=== PATIENT | male | born 1985 | race Caucasian/White ===

== ENCOUNTER 2016-10-10 20:20 | Inpatient (IN) | payer MEDICAID ==
[~2016-10-10] VITALS: Ht 172.7 cm; Wt 75.3 kg
[2016-10-10 21:03] LABS: BASOPHILS % (AUTO) 0.8 % (0.0-2.0); EOSINOPHILS % (AUTO) 1.4 % (1.0-6.0); HEMOGLOBIN 14.6 g/dL (13.5-17.5); LYMPHOCYTES # (AUTO) 2.8 K/uL (1.0-4.8); LYMPHOCYTES % (AUTO) 34.7 % (22.0-44.0); MEAN CORPUSCULAR HEMOGLOBIN 33.4 pg (26.0-34.0); MEAN CORPUSCULAR HGB CONC 33.3 G/dL (31.0-37.0); MEAN CORPUSCULAR VOLUME 100 fL (80-100); MONOCYTES # (AUTO) 0.5 K/uL (0.1-1.0); MONOCYTES % (AUTO) 6.2 % (2.0-9.0); NEUTROPHILS # (AUTO) 4.5 K/uL (1.8-7.7); NEUTROPHILS % (AUTO) 56.9 % (40.0-70.0); PLATELET COUNT (AUTO) 271 K/uL (150-450); RED BLOOD CELL COUNT(AUTO) 4.38 MIL/uL (4.50-5.90); RED CELL DISTRIBUTION WIDTH 13.7 % (11.5-14.5); WHITE BLOOD COUNT (AUTO) 7.9 K/uL (4.5-11.0)
[2016-10-10 21:04] LABS: RBC MORPHOLOGY COMMENT ABNORMAL RBC MORPH
[2016-10-10 21:27] LABS: ANION GAP 13 mmol/L (8-16); CALCIUM, TOTAL 8.2 mg/dL (8.8-10.5); CARBON DIOXIDE 24 mmol/L (22-29); CHLORIDE 108 mmol/L (98-107); CREATININE 0.73 mg/dL (0.60-1.30); GLOMERULAR FILTR. RATE CALC > 60 mL/min (>60); POTASSIUM 3.8 mmol/L (3.5-5.1); SODIUM SERUM 145 mmol/L (136-145); UREA NITROGEN, BLOOD 8 mg/dL (7-18)
[2016-10-10 21:32] LABS: ALANINE AMINOTRANSFERASE 29 U/L (12-78); ALBUMIN 3.5 g/dL (3.4-5.0); ASPARTATE AMINOTRANSFERASE 17 U/L (15-37); BILIRUBIN,TOTAL 0.2 mg/dL (0.1-1.0); TOTAL PROTEIN, SERUM 6.8 g/dL (6.4-8.2)
[2016-10-10] MEDS ORDERED: LORazepam 2 MG TABLET PO PRN ×2 (22:15)
[2016-10-10] MEDS ORDERED: ZOLPIDEM TARTRATE 10 MG TABLET PO PRN (22:15)
[2016-10-10] MEDS ORDERED: GuaiFENesin/D-METHORPHAN [SUGAR-FREE] 200-20MG/10 ML SYRUP UDCUP PO PRN (22:15)
[2016-10-10] MEDS ORDERED: HydrOXYzine PAMOATE 50 MG CAPSULE PO PRN (22:15)
[2016-10-10] MEDS ORDERED: CYANOCOBALAMIN 1,000 MCG/ML VIAL IM ONE (22:15)
[2016-10-10] MEDS ORDERED: LOPERAMIDE HCL 2 MG CAPSULE PO PRN (22:15)
[2016-10-11] VITALS (8 sets, daily range): BP systolic 111–131; BP diastolic 75–84
[2016-10-11] MEDS ORDERED: LORazepam 2 MG TABLET PO PRN (07:00)
[2016-10-11] MEDS: FOLIC ACID 1 MG TABLET PO SCH (08:05)
[2016-10-11] MEDS: THIAMINE HCL 100 MG TABLET PO SCH ×2 (08:06→16:22)
[2016-10-11] MEDS: LORazepam 2 MG TABLET PO SCH ×4 (08:06→20:34)
[2016-10-11] MEDS: MULTIVITAMINS WITH MINERALS, THERAPEUTIC TABLET PO SCH (08:06)
[2016-10-11] MEDS: HALOPERIDOL 5 MG TABLET PO PRN (16:22)
[2016-10-12 00:22] VITALS: BP 132/85
[2016-10-12 04:15] VITALS: BP 130/77
[2016-10-12 08:01] VITALS: BP 135/79
[2016-10-12] MEDS: THIAMINE HCL 100 MG TABLET PO SCH ×2 (08:55→16:08)
[2016-10-12] MEDS: LORazepam 2 MG TABLET PO SCH ×4 (08:55→20:38)
[2016-10-12] MEDS: MULTIVITAMINS WITH MINERALS, THERAPEUTIC TABLET PO SCH (08:55)
[2016-10-12] MEDS: FOLIC ACID 1 MG TABLET PO SCH (08:55)
[2016-10-12] MEDS: HALOPERIDOL 5 MG TABLET PO PRN ×2 (08:56→16:15)
[2016-10-12 16:00] VITALS: BP 135/79
[2016-10-12] MEDS ORDERED: IBUPROFEN 400 MG TABLET PO PRN (21:15)
[2016-10-12] MEDS ORDERED: ACETAMINOPHEN 325 MG TABLET PO PRN (21:15)
[2016-10-13 06:42] VITALS: BP 126/76
[2016-10-13 06:43] VITALS: BP 126/76
[2016-10-13] MEDS ORDERED: LORazepam 1 MG TABLET PO PRN (07:00)
[2016-10-13 08:00] VITALS: BP 138/79
[2016-10-13 08:01] VITALS: BP 138/79
[2016-10-13 08:18] LABS: THYROID STIMULATING HORMONE 2.84 uIU/mL (0.36-3.74)
[2016-10-13 08:33] LABS: HEMOGLOBIN A1C 5.1 % (4.5-6.2)
[2016-10-13] MEDS: FOLIC ACID 1 MG TABLET PO SCH (08:41)
[2016-10-13] MEDS: LORazepam 1 MG TABLET PO SCH ×4 (08:41→20:01)
[2016-10-13] MEDS: THIAMINE HCL 100 MG TABLET PO SCH ×2 (08:41→16:07)
[2016-10-13] MEDS: MULTIVITAMINS WITH MINERALS, THERAPEUTIC TABLET PO SCH (08:41)
[2016-10-13 11:33] LABS: CHOL/HDL RATIO 3.5 (4.2-7.3)
[2016-10-13 16:00] VITALS: BP 113/78
[2016-10-14 06:24] VITALS: BP 126/78
[2016-10-14 06:31] VITALS: BP 126/78
[2016-10-14] MEDS ORDERED: LORazepam 1 MG TABLET PO PRN (07:00)
[2016-10-14] MEDS: MULTIVITAMINS WITH MINERALS, THERAPEUTIC TABLET PO SCH (08:03)
[2016-10-14] MEDS: THIAMINE HCL 100 MG TABLET PO SCH ×2 (08:03→17:04)
[2016-10-14] MEDS: FOLIC ACID 1 MG TABLET PO SCH (08:03)
[2016-10-14 08:14] VITALS: BP 124/85
[2016-10-14 10:14] VITALS: BP 124/85
[2016-10-14 16:00] VITALS: BP 130/85
[2016-10-14 16:43] VITALS: BP 130/85
[2016-10-14] MEDS: HALOPERIDOL 5 MG TABLET PO PRN (17:04)
[2016-10-14] MEDS ORDERED: MIRTAZAPINE 15 MG TABLET PO SCH (21:00)
[2016-10-15 06:00] VITALS: BP 105/92
[2016-10-15 08:00] VITALS: BP 119/87
[2016-10-15] MEDS: THIAMINE HCL 100 MG TABLET PO SCH (09:13)
[2016-10-15] MEDS: HALOPERIDOL 5 MG TABLET PO PRN (09:13)
[2016-10-15] MEDS: FOLIC ACID 1 MG TABLET PO SCH (09:13)
[2016-10-15] MEDS: MULTIVITAMINS WITH MINERALS, THERAPEUTIC TABLET PO SCH (09:13)
[2016-10-15 10:19] VITALS: BP 119/87
[2016-10-15] MEDS ORDERED: MIRT15 PO (10:21)
== END 2016-10-15 11:15 | disposition home or self-care (01) | DRG 750 ==
LOC: EMS 20:24 → B3A 22:27
PROVIDERS: ADMIT Psychiatry & Neurology Child & Adolescent Psychiatry; ATTEND Psychiatry & Neurology Child & Adolescent Psychiatry
PROC: HZ36ZZZ Individual Counseling for Substance Abuse Treatment, Psychoeducation (ICD-10-PCS; principal; 2016-10-11)
DX: F25.1 Schizoaffective disorder, depressive type (principal); F33.2 Major depressive disorder, recurrent severe without psychotic features; R45.851 Suicidal ideations; R45.87 Impulsiveness; F10.129 Alcohol abuse with intoxication, unspecified; S10.91XA Abrasion of unspecified part of neck, initial encounter; Y90.8 Blood alcohol level of 240 mg/100 ml or more; F17.210 Nicotine dependence, cigarettes, uncomplicated; J11.1 Influenza due to unidentified influenza virus with other respiratory manifestations; Z72.89 Other problems related to lifestyle; Z71.41 Alcohol abuse counseling and surveillance of alcoholic; Z71.51 Drug abuse counseling and surveillance of drug abuser; Z79.899 Other long term (current) drug therapy; Z79.891 Long term (current) use of opiate analgesic; X83.8XXA Intentional self-harm by other specified means, initial encounter; Y93.89 Activity, other specified; Y92.89 Other specified places as the place of occurrence of the external cause; Y99.8 Other external cause status
CPT/HCPCS: 70360; 83036; 84443; 96372; 99285; G0480; J3420

== ENCOUNTER 2016-12-17 15:58 | Inpatient (IN) | payer MEDICAID, OTHER ==
[~2016-12-17] VITALS: Ht 172.7 cm; Wt 78.9 kg
[2016-12-17] MEDS: THIAMINE HCL 100 MG TABLET PO SCH ×2 (00:55→23:55)
[~2016-12-17 15:58] MED LIST: MIRT15 PO
[2016-12-17 16:43] LABS: BASOPHILS # (AUTO) 0.12 K/uL (0.00-0.20); BASOPHILS % (AUTO) 0.9 % (0.0-2.0); EOSINOPHILS # (AUTO) 0.04 K/uL (0.00-0.70); EOSINOPHILS % (AUTO) 0.25 % (1.0-6.0); HEMATOCRIT 49.6 % (41-53); HEMOGLOBIN 16.6 g/dL (13.5-17.5); LYMPHOCYTES # (AUTO) 2.7 K/uL (1.0-4.8); LYMPHOCYTES % (AUTO) 18.7 % (22.0-44.0); MEAN CORPUSCULAR HEMOGLOBIN 32.7 pg (26.0-34.0); MEAN CORPUSCULAR HGB CONC 33.5 G/dL (31.0-37.0); MEAN CORPUSCULAR VOLUME 98 fL (80-100); MONOCYTES # (AUTO) 0.6 K/uL (0.1-1.0); MONOCYTES % (AUTO) 4.3 % (2.0-9.0); NEUTROPHILS # (AUTO) 10.8 K/uL (1.8-7.7); NEUTROPHILS % (AUTO) 75.9 % (40.0-70.0); PLATELET COUNT (AUTO) 275 K/uL (150-450); RED BLOOD CELL COUNT(AUTO) 5.08 MIL/uL (4.50-5.90); RED CELL DISTRIBUTION WIDTH 13.5 % (11.5-14.5); WHITE BLOOD COUNT (AUTO) 14.2 K/uL (4.5-11.0)
[2016-12-17 16:58] LABS: ANION GAP 14 mmol/L (8-16); CALCIUM, TOTAL 8.3 mg/dL (8.8-10.5); CARBON DIOXIDE 26 mmol/L (22-29); CHLORIDE 104 mmol/L (98-107); CREATININE 0.91 mg/dL (0.60-1.30); GLOMERULAR FILTR. RATE CALC > 60 mL/min (>60); POTASSIUM 3.7 mmol/L (3.5-5.1); SODIUM SERUM 144 mmol/L (136-145); UREA NITROGEN, BLOOD 8 mg/dL (7-18)
[2016-12-17 17:04] LABS: ALANINE AMINOTRANSFERASE 39 U/L (12-78); ALBUMIN 4.4 g/dL (3.4-5.0); ASPARTATE AMINOTRANSFERASE 23 U/L (15-37); BILIRUBIN,TOTAL 0.8 mg/dL (0.1-1.0); TOTAL PROTEIN, SERUM 7.6 g/dL (6.4-8.2)
[2016-12-17] MEDS ORDERED: HydrOXYzine PAMOATE 50 MG CAPSULE PO PRN (17:45)
[2016-12-17] MEDS ORDERED: ACETAMINOPHEN 325 MG TABLET PO PRN (17:45)
[2016-12-17] MEDS ORDERED: DIAZEPAM 5 MG TABLET PO PRN (17:45)
[2016-12-17] MEDS ORDERED: GuaiFENesin/D-METHORPHAN [SUGAR-FREE] 200-20MG/10 ML SYRUP UDCUP PO PRN (17:45)
[2016-12-17] MEDS ORDERED: TUBERCULIN, PURIFIED PROTEIN DERIVATIVE 5 TU/0.1 ML SYG ID ONE (17:45)
[2016-12-17] MEDS ORDERED: CYANOCOBALAMIN 1,000 MCG/ML VIAL IM ONE (17:45)
[2016-12-17] MEDS ORDERED: QUEtiapine FUMARATE 100 MG TABLET PO PRN (17:45)
[2016-12-17] MEDS ORDERED: MAG HYDROX/AL HYDROX/SIMETH ES 30 ML SUSPENSION UDCUP PO PRN (17:45)
[2016-12-17] MEDS ORDERED: LOPERAMIDE HCL 2 MG CAPSULE PO PRN ×2 (17:45)
[2016-12-17] MEDS ORDERED: MAGNESIUM HYDROXIDE SUSPENSION 30 ML UDCUP PO PRN (17:45)
[2016-12-17] MEDS ORDERED: ZOLPIDEM TARTRATE 10 MG TABLET PO PRN (17:45)
[2016-12-17] MEDS ORDERED: LORazepam 2 MG TABLET PO ONE (18:45)
[2016-12-17] MEDS ORDERED: HYDR-4031 PO (20:57)
[2016-12-17 23:45] VITALS: BP 118/72
[2016-12-17] MEDS: MIRTAZAPINE 15 MG TABLET PO SCH (23:55)
[2016-12-18] VITALS (11 sets, daily range): BP systolic 115–146; BP diastolic 70–89
[2016-12-18] MEDS ORDERED: DIAZEPAM 10 MG TABLET PO PRN (07:00)
[2016-12-18] MEDS: FOLIC ACID 1 MG TABLET PO SCH (08:00)
[2016-12-18] MEDS: DIAZEPAM 10 MG TABLET PO SCH ×4 (08:00→20:17)
[2016-12-18] MEDS: MULTIVITAMINS WITH MINERALS, THERAPEUTIC TABLET PO SCH (08:00)
[2016-12-18] MEDS: THIAMINE HCL 100 MG TABLET PO SCH ×2 (08:00→16:16)
[2016-12-18] MEDS: NALTREXONE HCL 50 MG TABLET PO SCH (08:00)
[2016-12-18 08:14] LABS: BASOPHILS # (AUTO) 0.06 K/uL (0.00-0.20); BASOPHILS % (AUTO) 0.6 % (0.0-2.0); EOSINOPHILS # (AUTO) 0.06 K/uL (0.00-0.70); EOSINOPHILS % (AUTO) 0.57 % (1.0-6.0); HEMOGLOBIN 15.3 g/dL (13.5-17.5); LYMPHOCYTES # (AUTO) 2.6 K/uL (1.0-4.8); LYMPHOCYTES % (AUTO) 23.2 % (22.0-44.0); MEAN CORPUSCULAR HEMOGLOBIN 33.2 pg (26.0-34.0); MEAN CORPUSCULAR VOLUME 98 fL (80-100); MONOCYTES # (AUTO) 0.7 K/uL (0.1-1.0); MONOCYTES % (AUTO) 6.7 % (2.0-9.0); NEUTROPHILS # (AUTO) 7.6 K/uL (1.8-7.7); PLATELET COUNT (AUTO) 225 K/uL (150-450); RED BLOOD CELL COUNT(AUTO) 4.61 MIL/uL (4.50-5.90); RED CELL DISTRIBUTION WIDTH 13.4 % (11.5-14.5)
[2016-12-18 08:25] LABS: HEMOGLOBIN A1C 5.3 % (4.5-6.2)
[2016-12-18 08:48] LABS: ALANINE AMINOTRANSFERASE 34 U/L (12-78); ALBUMIN 4.1 g/dL (3.4-5.0); ANION GAP 16 mmol/L (8-16); ASPARTATE AMINOTRANSFERASE 21 U/L (15-37); BILIRUBIN,TOTAL 1.7 mg/dL (0.1-1.0); CALCIUM, TOTAL 8.5 mg/dL (8.8-10.5); CARBON DIOXIDE 24 mmol/L (22-29); CHLORIDE 101 mmol/L (98-107); CHOL/HDL RATIO 2.9 (4.2-7.3); CREATININE 0.77 mg/dL (0.60-1.30); GLOMERULAR FILTR. RATE CALC > 60 mL/min (>60); SODIUM SERUM 141 mmol/L (136-145); UREA NITROGEN, BLOOD 10 mg/dL (7-18)
[2016-12-18] MEDS ORDERED: POTASSIUM CHLORIDE 20 MEQ ER TABLET PO ONE (11:00)
[2016-12-18] MEDS ORDERED: MIRT15 PO (17:39)
[2016-12-18] MEDS ORDERED: NALT50 PO ×2 (17:39→19:57)
[2016-12-18] MEDS ORDERED: DISU250T6 PO (17:43)
[2016-12-18] MEDS ORDERED: IBUPROFEN 400 MG TABLET PO PRN (18:45)
[2016-12-18] MEDS ORDERED: ACETAMINOPHEN 325 MG TABLET PO PRN (18:45)
[2016-12-18] MEDS ORDERED: DISU250 PO (19:57)
[2016-12-18] MEDS: MIRTAZAPINE 15 MG TABLET PO SCH (20:17)
[2016-12-19 00:56] VITALS: BP 111/69
[2016-12-19 02:45] VITALS: BP 127/60
[2016-12-19 08:12] VITALS: BP 136/72
[2016-12-19] MEDS: MULTIVITAMINS WITH MINERALS, THERAPEUTIC TABLET PO SCH (08:25)
[2016-12-19] MEDS: THIAMINE HCL 100 MG TABLET PO SCH (08:25)
[2016-12-19] MEDS: DIAZEPAM 10 MG TABLET PO SCH (08:25)
[2016-12-19] MEDS: NALTREXONE HCL 50 MG TABLET PO SCH (08:25)
[2016-12-19] MEDS: FOLIC ACID 1 MG TABLET PO SCH (08:25)
[2016-12-19 08:37] LABS: ANION GAP 6 mmol/L (8-16); CALCIUM, TOTAL 8.9 mg/dL (8.8-10.5); CARBON DIOXIDE 30 mmol/L (22-29); CHLORIDE 103 mmol/L (98-107); CREATININE 0.83 mg/dL (0.60-1.30); GLOMERULAR FILTR. RATE CALC > 60 mL/min (>60); POTASSIUM 4.1 mmol/L (3.5-5.1); SODIUM SERUM 139 mmol/L (136-145); UREA NITROGEN, BLOOD 11 mg/dL (7-18)
[2016-12-19] MEDS ORDERED: DISULFIRAM 250 MG TABLET PO SCH (09:00)
[2016-12-20] MEDS ORDERED: DIAZEPAM 5 MG TABLET PO PRN (07:00)
[2016-12-20] MEDS ORDERED: DIAZEPAM 5 MG TABLET PO SCH (09:00)
[2016-12-21] MEDS ORDERED: DIAZEPAM 5 MG TABLET PO PRN (07:00)
== END 2016-12-19 09:01 | disposition home or self-care (01) | DRG 754 ==
LOC: EMS 16:01 → B2S 20:30
PROVIDERS: ADMIT Psychiatry & Neurology Psychiatry; ATTEND Psychiatry & Neurology Psychiatry
PROC: HZ2ZZZZ Detoxification Services for Substance Abuse Treatment (ICD-10-PCS; principal; 2016-12-17)
DX: F32.9 Major depressive disorder, single episode, unspecified (principal); R45.851 Suicidal ideations; Z91.19 Patient's noncompliance with other medical treatment and regimen; E87.6 Hypokalemia; F29 Unspecified psychosis not due to a substance or known physiological condition; F17.210 Nicotine dependence, cigarettes, uncomplicated; F19.90 Other psychoactive substance use, unspecified, uncomplicated; D72.829 Elevated white blood cell count, unspecified; F41.9 Anxiety disorder, unspecified; Z72.89 Other problems related to lifestyle; Z59.9 Problem related to housing and economic circumstances, unspecified; Z65.3 Problems related to other legal circumstances; Z71.41 Alcohol abuse counseling and surveillance of alcoholic; Z71.51 Drug abuse counseling and surveillance of drug abuser
CPT/HCPCS: 83036; 84439; 84443; 86592; 96372; 99285; G0480; J3420

== ENCOUNTER 2017-03-17 11:14 | Inpatient (IN) | payer MEDICAID, OTHER ==
[~2017-03-17] VITALS: Ht 172.7 cm; Wt 78.5 kg
[~2017-03-17 11:14] MED LIST changes: +DISU250 PO; +DISU250T6 PO; +NALT50TA6 PO
[2017-03-17 13:07] LABS: BASOPHILS # (AUTO) 0.04 K/uL (0.00-0.20); BASOPHILS % (AUTO) 0.4 % (0.0-2.0); EOSINOPHILS # (AUTO) 0.06 K/uL (0.00-0.70); EOSINOPHILS % (AUTO) 0.58 % (1.0-6.0); HEMATOCRIT 46.8 % (41-53); HEMOGLOBIN 16.4 g/dL (13.5-17.5); LYMPHOCYTES # (AUTO) 3.3 K/uL (1.0-4.8); LYMPHOCYTES % (AUTO) 33.4 % (22.0-44.0); MEAN CORPUSCULAR HEMOGLOBIN 33.4 pg (26.0-34.0); MEAN CORPUSCULAR VOLUME 96 fL (80-100); MONOCYTES # (AUTO) 0.5 K/uL (0.1-1.0); MONOCYTES % (AUTO) 5.1 % (2.0-9.0); NEUTROPHILS # (AUTO) 5.9 K/uL (1.8-7.7); NEUTROPHILS % (AUTO) 60.6 % (40.0-70.0); PLATELET COUNT (AUTO) 286 K/uL (150-450); RED CELL DISTRIBUTION WIDTH 13.4 % (11.5-14.5); WHITE BLOOD COUNT (AUTO) 9.8 K/uL (4.5-11.0)
[2017-03-17 13:43] LABS: ANION GAP 12 mmol/L (8-16); CALCIUM, TOTAL 8.5 mg/dL (8.8-10.5); CARBON DIOXIDE 26 mmol/L (22-29); CHLORIDE 105 mmol/L (98-107); GLOMERULAR FILTR. RATE CALC > 60 mL/min (>60); POTASSIUM 4.4 mmol/L (3.5-5.1); SODIUM SERUM 143 mmol/L (136-145); UREA NITROGEN, BLOOD 7 mg/dL (7-18)
[2017-03-17 13:48] LABS: ALANINE AMINOTRANSFERASE 34 U/L (12-78); ALBUMIN 4.3 g/dL (3.4-5.0); ASPARTATE AMINOTRANSFERASE 24 U/L (15-37); BILIRUBIN,TOTAL 0.6 mg/dL (0.1-1.0); TOTAL PROTEIN, SERUM 7.6 g/dL (6.4-8.2)
[2017-03-17] MEDS ORDERED: LOPERAMIDE HCL 2 MG CAPSULE PO PRN (14:45)
[2017-03-17] MEDS ORDERED: QUEtiapine FUMARATE 100 MG TABLET PO PRN (14:45)
[2017-03-17] MEDS ORDERED: CYANOCOBALAMIN 1,000 MCG/ML VIAL IM ONE (14:45)
[2017-03-17] MEDS ORDERED: MAG HYDROX/AL HYDROX/SIMETH ES 30 ML SUSPENSION UDCUP PO PRN (14:45)
[2017-03-17] MEDS ORDERED: PROMETHAZINE HCL 25 MG TABLET PO PRN (14:45)
[2017-03-17] MEDS ORDERED: HydrOXYzine PAMOATE 50 MG CAPSULE PO PRN (14:45)
[2017-03-17] MEDS ORDERED: GuaiFENesin/D-METHORPHAN [SUGAR-FREE] 200-20MG/10 ML SYRUP UDCUP PO PRN (14:45)
[2017-03-17] MEDS ORDERED: ACETAMINOPHEN 325 MG TABLET PO PRN (14:45)
[2017-03-17] MEDS ORDERED: MAGNESIUM HYDROXIDE SUSPENSION 30 ML UDCUP PO PRN (14:45)
[2017-03-17 16:00] VITALS: BP 145/96
[2017-03-17] MEDS: THIAMINE HCL 100 MG TABLET PO SCH (16:35)
[2017-03-17] MEDS: LORazepam 2 MG TABLET PO PRN ×2 (16:35→18:59)
[2017-03-17 17:00] VITALS: BP 142/97
[2017-03-17] MEDS ORDERED: CloNIDine HCL 0.1 MG TABLET PO PRN (17:15)
[2017-03-17 18:00] VITALS: BP 137/96
[2017-03-17 19:00] VITALS: BP 143/93
[2017-03-17 20:00] VITALS: BP 150/84
[2017-03-17] MEDS: MIRTAZAPINE 15 MG TABLET PO SCH (20:07)
[2017-03-17] MEDS: ZOLPIDEM TARTRATE 10 MG TABLET PO PRN (20:08)
[2017-03-17] MEDS ORDERED: INFLUENZA VIRUS VACCINE QVS 2017-18 (3YR+)/PF 60 MCG/0.5 ML SYRINGE IM ONE (20:45)
[2017-03-18] VITALS (7 sets, daily range): BP systolic 131–141; BP diastolic 74–85
[2017-03-18] MEDS ORDERED: LORazepam 2 MG TABLET PO PRN (07:00)
[2017-03-18 08:28] LABS: BASOPHILS # (AUTO) 0.04 K/uL (0.00-0.20); BASOPHILS % (AUTO) 0.5 % (0.0-2.0); EOSINOPHILS # (AUTO) 0.15 K/uL (0.00-0.70); EOSINOPHILS % (AUTO) 1.87 % (1.0-6.0); HEMATOCRIT 43.7 % (41-53); HEMOGLOBIN 15.2 g/dL (13.5-17.5); LYMPHOCYTES # (AUTO) 2.1 K/uL (1.0-4.8); LYMPHOCYTES % (AUTO) 26.3 % (22.0-44.0); MEAN CORPUSCULAR HEMOGLOBIN 33.5 pg (26.0-34.0); MEAN CORPUSCULAR HGB CONC 34.8 G/dL (31.0-37.0); MEAN CORPUSCULAR VOLUME 96 fL (80-100); MONOCYTES # (AUTO) 0.8 K/uL (0.1-1.0); MONOCYTES % (AUTO) 9.6 % (2.0-9.0); NEUTROPHILS # (AUTO) 4.9 K/uL (1.8-7.7); NEUTROPHILS % (AUTO) 61.8 % (40.0-70.0); PLATELET COUNT (AUTO) 241 K/uL (150-450); RED BLOOD CELL COUNT(AUTO) 4.54 MIL/uL (4.50-5.90); RED CELL DISTRIBUTION WIDTH 13.4 % (11.5-14.5)
[2017-03-18] MEDS: FOLIC ACID 1 MG TABLET PO SCH (08:34)
[2017-03-18] MEDS: LORazepam 2 MG TABLET PO SCH ×4 (08:35→20:31)
[2017-03-18] MEDS: MULTIVITAMINS WITH MINERALS, THERAPEUTIC TABLET PO SCH (08:35)
[2017-03-18] MEDS: THIAMINE HCL 100 MG TABLET PO SCH ×2 (08:35→16:25)
[2017-03-18 09:01] LABS: HEMOGLOBIN A1C 5.2 % (4.5-6.2)
[2017-03-18] MEDS ORDERED: ACETAMINOPHEN 325 MG TABLET PO PRN ×2 (10:00→21:45)
[2017-03-18] MEDS ORDERED: IBUPROFEN 400 MG TABLET PO PRN ×2 (10:00→21:45)
[2017-03-18 10:04] LABS: ALANINE AMINOTRANSFERASE 35 U/L (12-78); ALBUMIN 3.9 g/dL (3.4-5.0); ANION GAP 7 mmol/L (8-16); ASPARTATE AMINOTRANSFERASE 24 U/L (15-37); CALCIUM, TOTAL 8.8 mg/dL (8.8-10.5); CARBON DIOXIDE 30 mmol/L (22-29); CHLORIDE 104 mmol/L (98-107); CHOL/HDL RATIO 3.1 (4.2-7.3); CREATININE 0.94 mg/dL (0.60-1.30); GLOMERULAR FILTR. RATE CALC > 60 mL/min (>60); POTASSIUM 4.1 mmol/L (3.5-5.1); SODIUM SERUM 141 mmol/L (136-145); TOTAL PROTEIN, SERUM 6.7 g/dL (6.4-8.2); UREA NITROGEN, BLOOD 11 mg/dL (7-18)
[2017-03-18] MEDS: LITHIUM CARBONATE 300 MG CAPSULE PO SCH (16:25)
[2017-03-18] MEDS: MIRTAZAPINE 15 MG TABLET PO SCH (20:30)
[2017-03-19 00:04] VITALS: BP 116/71
[2017-03-19 00:05] VITALS: BP 116/71
[2017-03-19] MEDS: LITHIUM CARBONATE 300 MG CAPSULE PO SCH ×3 (06:40→16:07)
[2017-03-19] MEDS: MULTIVITAMINS WITH MINERALS, THERAPEUTIC TABLET PO SCH (08:28)
[2017-03-19] MEDS: FOLIC ACID 1 MG TABLET PO SCH (08:28)
[2017-03-19 08:34] LABS: BASOPHILS % (AUTO) 0.6 % (0.0-2.0); EOSINOPHILS % (AUTO) 2.2 % (1.0-6.0); HEMATOCRIT 43.9 % (41-53); HEMOGLOBIN 15.2 g/dL (13.5-17.5); LYMPHOCYTES # (AUTO) 2.1 K/uL (1.0-4.8); LYMPHOCYTES % (AUTO) 29.2 % (22.0-44.0); MEAN CORPUSCULAR HEMOGLOBIN 33.6 pg (26.0-34.0); MEAN CORPUSCULAR HGB CONC 34.6 G/dL (31.0-37.0); MEAN CORPUSCULAR VOLUME 97 fL (80-100); MONOCYTES # (AUTO) 0.6 K/uL (0.1-1.0); MONOCYTES % (AUTO) 8.9 % (2.0-9.0); NEUTROPHILS # (AUTO) 4.2 K/uL (1.8-7.7); NEUTROPHILS % (AUTO) 59.1 % (40.0-70.0); PLATELET COUNT (AUTO) 237 K/uL (150-450); RED BLOOD CELL COUNT(AUTO) 4.52 MIL/uL (4.50-5.90); RED CELL DISTRIBUTION WIDTH 13.2 % (11.5-14.5); WHITE BLOOD COUNT (AUTO) 7.1 K/uL (4.5-11.0)
[2017-03-19 08:41] VITALS: BP 134/76
[2017-03-19 08:55] LABS: ALANINE AMINOTRANSFERASE 30 U/L (12-78); ALBUMIN 3.8 g/dL (3.4-5.0); ANION GAP 6 mmol/L (8-16); ASPARTATE AMINOTRANSFERASE 20 U/L (15-37); BILIRUBIN,TOTAL 1.4 mg/dL (0.1-1.0); CALCIUM, TOTAL 8.3 mg/dL (8.8-10.5); CARBON DIOXIDE 28 mmol/L (22-29); CHLORIDE 104 mmol/L (98-107); CHOL/HDL RATIO 3.2 (4.2-7.3); CREATININE 0.84 mg/dL (0.60-1.30); GLOMERULAR FILTR. RATE CALC > 60 mL/min (>60); SODIUM SERUM 138 mmol/L (136-145); THYROID STIMULATING HORMONE 2.73 uIU/mL (0.36-3.74); TOTAL PROTEIN, SERUM 6.9 g/dL (6.4-8.2); UREA NITROGEN, BLOOD 10 mg/dL (7-18)
[2017-03-19] MEDS: LORazepam 2 MG TABLET PO SCH ×4 (09:02→20:05)
[2017-03-19] MEDS: NALTREXONE HCL 50 MG TABLET PO SCH (09:02)
[2017-03-19] MEDS: THIAMINE HCL 100 MG TABLET PO SCH ×2 (09:02→16:07)
[2017-03-19 11:32] LABS: HEMOGLOBIN A1C 5.6 % (4.5-6.2)
[2017-03-19 15:12] VITALS: BP 134/76
[2017-03-19 16:00] VITALS: BP 133/72
[2017-03-19 16:18] VITALS: BP 133/72
[2017-03-19] MEDS: MIRTAZAPINE 30 MG TABLET PO SCH (20:06)
[2017-03-20 00:03] VITALS: BP 120/78
[2017-03-20] MEDS: LITHIUM CARBONATE 300 MG CAPSULE PO SCH ×3 (06:09→16:05)
[2017-03-20] MEDS ORDERED: LORazepam 1 MG TABLET PO PRN (07:00)
[2017-03-20 08:26] VITALS: BP 122/65
[2017-03-20 08:30] VITALS: BP 122/65
[2017-03-20] MEDS: THIAMINE HCL 100 MG TABLET PO SCH ×2 (08:34→16:05)
[2017-03-20] MEDS: FOLIC ACID 1 MG TABLET PO SCH (08:34)
[2017-03-20] MEDS: NALTREXONE HCL 50 MG TABLET PO SCH (08:34)
[2017-03-20] MEDS: LORazepam 1 MG TABLET PO SCH ×4 (08:34→20:08)
[2017-03-20] MEDS: MULTIVITAMINS WITH MINERALS, THERAPEUTIC TABLET PO SCH (08:34)
[2017-03-20] MEDS ORDERED: LOPERAMIDE HCL 2 MG CAPSULE PO PRN (14:45)
[2017-03-20 16:08] VITALS: BP 140/82
[2017-03-20 16:10] VITALS: BP 140/82
[2017-03-20] MEDS: MIRTAZAPINE 30 MG TABLET PO SCH (20:08)
[2017-03-20] MEDS: ZOLPIDEM TARTRATE 10 MG TABLET PO PRN (21:39)
[2017-03-21 00:03] VITALS: BP 130/74
[2017-03-21] MEDS: LITHIUM CARBONATE 300 MG CAPSULE PO SCH ×2 (06:42→12:16)
[2017-03-21] MEDS ORDERED: LORazepam 1 MG TABLET PO PRN (07:00)
[2017-03-21 08:17] VITALS: BP 126/84
[2017-03-21] MEDS: NALTREXONE HCL 50 MG TABLET PO SCH (08:43)
[2017-03-21] MEDS: MULTIVITAMINS WITH MINERALS, THERAPEUTIC TABLET PO SCH (08:43)
[2017-03-21] MEDS: THIAMINE HCL 100 MG TABLET PO SCH (08:43)
[2017-03-21] MEDS: FOLIC ACID 1 MG TABLET PO SCH (08:43)
[2017-03-21 08:53] VITALS: BP 126/84
[2017-03-21] MEDS ORDERED: MIRT30 PO (12:52)
[2017-03-21] MEDS ORDERED: LITH300CRT PO (12:52)
== END 2017-03-21 13:30 | disposition home or self-care (01) | DRG 753 ==
LOC: EMS 11:26 → B2S 15:15
PROVIDERS: ADMIT Psychiatry & Neurology Psychiatry; ATTEND Psychiatry & Neurology Psychiatry
DX: F31.30 Bipolar disorder, current episode depressed, mild or moderate severity, unspecified (principal); R45.851 Suicidal ideations; Z91.19 Patient's noncompliance with other medical treatment and regimen; I10 Essential (primary) hypertension; K21.9 Gastro-esophageal reflux disease without esophagitis; F17.210 Nicotine dependence, cigarettes, uncomplicated; F12.10 Cannabis abuse, uncomplicated; F10.10 Alcohol abuse, uncomplicated; E80.6 Other disorders of bilirubin metabolism; F19.10 Other psychoactive substance abuse, uncomplicated; F41.9 Anxiety disorder, unspecified; Z65.3 Problems related to other legal circumstances; Z79.899 Other long term (current) drug therapy
CPT/HCPCS: 83036; 84443; 99285; G0480; J3420

== ENCOUNTER 2019-05-06 12:20 | Emergency (ER) | payer MEDICAID, OTHER ==
[~2019-05-06] VITALS: Ht 170.2 cm; Wt 77.3 kg
[~2019-05-06 12:20] MED LIST changes: +AMLO2.5T4 PO; -DISU250 PO; -DISU250T6 PO; +LITH300CRT PO; -MIRT15 PO; -NALT50TA6 PO
[2019-05-06 15:30] VITALS: BP 123/91
== END 2019-05-06 15:36 | disposition home or self-care (01) ==
LOC: EMS 12:20
DX: F10.129 Alcohol abuse with intoxication, unspecified (principal); F41.9 Anxiety disorder, unspecified; F31.9 Bipolar disorder, unspecified; F17.210 Nicotine dependence, cigarettes, uncomplicated; Z98.890 Other specified postprocedural states

== ENCOUNTER 2019-05-21 09:08 | Inpatient (IN) | payer MEDICAID, OTHER ==
[~2019-05-21] VITALS: Ht 170.2 cm; Wt 80.0 kg
[2019-05-21 09:51] LABS: BASOPHILS % (AUTO) 0.8 % (0.0-2.0); EOSINOPHILS % (AUTO) 1.2 % (1.0-6.0); HEMOGLOBIN 15.9 g/dL (13.5-17.5); LYMPHOCYTES # (AUTO) 1.9 K/uL (1.0-4.8); LYMPHOCYTES % (AUTO) 19.4 % (22.0-44.0); MEAN CORPUSCULAR HEMOGLOBIN 33.5 pg (26.0-34.0); MEAN CORPUSCULAR HGB CONC 34.7 G/dL (31.0-37.0); MEAN CORPUSCULAR VOLUME 97 fL (80-100); MONOCYTES # (AUTO) 0.5 K/uL (0.1-1.0); MONOCYTES % (AUTO) 5.3 % (2.0-9.0); NEUTROPHILS % (AUTO) 73.3 % (40.0-70.0); PLATELET COUNT (AUTO) 289 K/uL (150-450); RED BLOOD CELL COUNT(AUTO) 4.76 MIL/uL (4.50-5.90); RED CELL DISTRIBUTION WIDTH 13.5 % (11.5-14.5)
[2019-05-21 10:00] LABS: ANION GAP 10 mmol/L (8-16); CALCIUM, TOTAL 7.9 mg/dL (8.8-10.5); CARBON DIOXIDE 27 mmol/L (22-29); CHLORIDE 106 mmol/L (98-107); CREATININE 0.93 mg/dL (0.60-1.30); GLOMERULAR FILTR. RATE CALC > 60 mL/min (>60); GLUCOSE,RANDOM 90 mg/dL (70-110); POTASSIUM 3.8 mmol/L (3.5-5.1); SODIUM SERUM 143 mmol/L (136-145); UREA NITROGEN, BLOOD 13 mg/dL (7-18)
[2019-05-21 10:06] LABS: ALANINE AMINOTRANSFERASE 21 U/L (12-78); ALBUMIN 3.7 g/dL (3.4-5.0); ALKALINE PHOSPHATASE 65 U/L (46-116); ASPARTATE AMINOTRANSFERASE 21 U/L (15-37); BILIRUBIN,TOTAL 0.3 mg/dL (0.1-1.0); TOTAL PROTEIN, SERUM 6.8 g/dL (6.4-8.2)
[2019-05-21] MEDS ORDERED: ZOLPIDEM TARTRATE 10 MG TABLET PO PRN (10:45)
[2019-05-21 12:01] LABS: AMPHET/METH SCREEN,URINE NEGATIVE (NEGATIVE); BARBITURATE SCREEN, URINE NEGATIVE (NEGATIVE); BENZODIAZEPINES SCREEN,URINE NEGATIVE (NEGATIVE); CANNABINOID SCREEN,URINE NEGATIVE (NEGATIVE); COCAINE SCREEN,URINE NEGATIVE (NEGATIVE); METHADONE SCREEN, URINE NEGATIVE (NEGATIVE); OPIATE SCREEN,URINE NEGATIVE (NEGATIVE); PHENCYCLIDINE SCREEN,URINE NEGATIVE (NEGATIVE)
[2019-05-21 12:22] LABS: APPEARANCE,URINE CLEAR (CLEAR); BILIRUBIN,URINE NEGATIVE (NEGATIVE); GLUCOSE, URINE (UA) NEGATIVE (NEGATIVE); KETONES,URINE NEGATIVE (NEGATIVE); LEUKOCYTE ESTERASE ,URINE NEGATIVE (NEGATIVE); NITRATE,URINE NEGATIVE (NEGATIVE); OCCULT BLOOD,URINE NEGATIVE (NEGATIVE); PROTEIN,URINE NEGATIVE (NEGATIVE); UROBILINOGEN,URINE 0.2 mg/dL (<=1.0)
[2019-05-21] MEDS ORDERED: ChlordiazePOXIDE HCL 25 MG CAPSULE PO ONE (19:00)
[2019-05-21] MEDS ORDERED: ONDANSETRON HCL 4 MG/2 ML VIAL IVP ONE (19:00)
[2019-05-21] MEDS ORDERED: LORazepam 2 MG/ML VIAL IVP ONE (19:00)
[2019-05-21 22:17] VITALS: BP 142/94
[2019-05-21] MEDS ORDERED: PNEUMOCOCCAL VACCINE POLYVALENT 0.5 ML VIAL [PPSV23] IM ONE (23:15)
[2019-05-22] MEDS: LORazepam 2 MG TABLET PO PRN ×3 (06:20→15:52)
[2019-05-22] MEDS: HALOPERIDOL 5 MG TABLET PO PRN ×2 (08:01→17:07)
[2019-05-22 08:21] VITALS: BP 139/75
[2019-05-22 09:55] LABS: CHOL/HDL RATIO 2.6 (4.2-7.3); FREE T4 (FREE THYROXINE) 0.95 ng/dL (0.76-1.46); THYROID STIMULATING HORMONE 1.91 uIU/mL (0.36-3.74)
[2019-05-22 16:43] VITALS: BP 138/95
[2019-05-23] MEDS: LORazepam 2 MG TABLET PO PRN ×3 (07:27→17:08)
[2019-05-23] MEDS: HALOPERIDOL 5 MG TABLET PO PRN ×3 (07:27→17:08)
[2019-05-23 08:25] VITALS: BP 127/72
[2019-05-23 17:57] VITALS: BP 128/71
[2019-05-23] MEDS ORDERED: MIRTAZAPINE 15 MG TABLET PO SCH (21:00)
[2019-05-24 08:43] VITALS: BP 121/86
[2019-05-24] MEDS: LORazepam 2 MG TABLET PO PRN (09:40)
[2019-05-24] MEDS: HALOPERIDOL 5 MG TABLET PO PRN (09:40)
[2019-05-24] MEDS ORDERED: MIRT-92 PO (11:17)
== END 2019-05-24 13:00 | disposition home or self-care (01) | DRG 881 ==
LOC: EDUNIT# 09:08 → EMS 09:10 → 3EC 20:00
PROVIDERS: ADMIT Psychiatry & Neurology Psychiatry; ATTEND Psychiatry & Neurology Psychiatry
DX: F32.9 Major depressive disorder, single episode, unspecified (principal); F41.9 Anxiety disorder, unspecified; G47.00 Insomnia, unspecified; Y90.8 Blood alcohol level of 240 mg/100 ml or more; Z81.1 Family history of alcohol abuse and dependence; F12.90 Cannabis use, unspecified, uncomplicated; F10.10 Alcohol abuse, uncomplicated; Z28.21 Immunization not carried out because of patient refusal
CPT/HCPCS: 84439; 84443; 87081; G0480; J2060; J2405

== ENCOUNTER 2020-05-17 16:49 | Inpatient (IN) | payer MEDICAID, OTHER ==
[~2020-05-17] VITALS: Ht 170.2 cm; Wt 79.7 kg
[~2020-05-17 16:49] MED LIST changes: -AMLO2.5T4 PO; -LITH300CRT PO; +MIRT-89 PO
[2020-05-17 18:11] LABS: COVID AG,FIA SOURCE NASOPHARYNGEAL
[2020-05-17 18:12] LABS: BASOPHILS % (AUTO) 0.8 % (0.0-2.0); EOSINOPHILS % (AUTO) 2.4 % (1.0-6.0); HEMATOCRIT 49.2 % (41-53); HEMOGLOBIN 16.5 g/dL (13.5-17.5); LYMPHOCYTES # (AUTO) 2.7 K/uL (1.0-4.8); LYMPHOCYTES % (AUTO) 33.7 % (22.0-44.0); MEAN CORPUSCULAR HEMOGLOBIN 34.3 pg (26.0-34.0); MEAN CORPUSCULAR HGB CONC 33.6 G/dL (31.0-37.0); MEAN CORPUSCULAR VOLUME 102 fL (80-100); MONOCYTES # (AUTO) 0.6 K/uL (0.1-1.0); NEUTROPHILS # (AUTO) 4.3 K/uL (1.8-7.7); NEUTROPHILS % (AUTO) 55.1 % (40.0-70.0); PLATELET COUNT (AUTO) 337 K/uL (150-450); RED BLOOD CELL COUNT(AUTO) 4.82 MIL/uL (4.50-5.90)
[2020-05-17 18:15] LABS: ANION GAP 7 mmol/L (8-16); CALCIUM, TOTAL 7.9 mg/dL (8.8-10.5); CARBON DIOXIDE 29 mmol/L (22-29); CHLORIDE 108 mmol/L (98-107); CREATININE 0.92 mg/dL (0.60-1.30); GLOMERULAR FILTR. RATE CALC > 60 mL/min (>60); GLUCOSE,RANDOM 97 mg/dL (70-110); POTASSIUM 4.6 mmol/L (3.5-5.1); SODIUM SERUM 144 mmol/L (136-145); UREA NITROGEN, BLOOD 5 mg/dL (7-18)
[2020-05-17 18:22] LABS: ALANINE AMINOTRANSFERASE 40 U/L (12-78); ALBUMIN 3.4 g/dL (3.4-5.0); ALKALINE PHOSPHATASE 63 U/L (46-116); ASPARTATE AMINOTRANSFERASE 27 U/L (15-37); BILIRUBIN,TOTAL 0.3 mg/dL (0.1-1.0); TOTAL PROTEIN, SERUM 6.9 g/dL (6.4-8.2)
[2020-05-17] MEDS ORDERED: HALOPERIDOL 5 MG TABLET PO PRN (20:00)
[2020-05-17] MEDS ORDERED: ZOLPIDEM TARTRATE 10 MG TABLET PO PRN (20:00)
[2020-05-18] VITALS (9 sets, daily range): BP systolic 108–153; BP diastolic 66–183
[2020-05-18] MEDS: ChlordiazePOXIDE HCL 25 MG CAPSULE PO PRN ×2 (00:58→04:47)
[2020-05-18] MEDS ORDERED: ChlordiazePOXIDE HCL 25 MG CAPSULE PO PRN (07:00)
[2020-05-18] MEDS ORDERED: ALBUTEROL SULFATE HFA 90 MCG/PUFF 8 GM INHALER IH PRN (07:15)
[2020-05-18] MEDS ORDERED: PETROLATUM,WHITE 28 GM JELLY TP PRN (07:15)
[2020-05-18] MEDS ORDERED: IBUPROFEN 400 MG TABLET PO PRN (07:15)
[2020-05-18] MEDS ORDERED: NICOTINE 14 MG/24 HOUR PATCH TD PRN (07:15)
[2020-05-18] MEDS ORDERED: DOCUSATE SODIUM 100 MG CAPSULE PO PRN (07:15)
[2020-05-18] MEDS ORDERED: GuaiFENesin/D-METHORPHAN [SUGAR-FREE] 200-20MG/10 ML SYRUP UDCUP PO PRN (07:15)
[2020-05-18] MEDS ORDERED: MAGNESIUM HYDROXIDE SUSPENSION 30 ML UDCUP PO PRN (07:15)
[2020-05-18] MEDS ORDERED: MAG HYDROX/AL HYDROX/SIMETH ES 30 ML SUSPENSION UDCUP PO PRN (07:15)
[2020-05-18] MEDS ORDERED: LOPERAMIDE HCL 2 MG CAPSULE PO PRN (07:15)
[2020-05-18] MEDS ORDERED: CloNIDine HCL 0.1 MG TABLET PO PRN (07:15)
[2020-05-18] MEDS ORDERED: ONDANSETRON HCL 4 MG TABLET PO PRN (07:15)
[2020-05-18] MEDS ORDERED: ACETAMINOPHEN 325 MG TABLET PO PRN (07:15)
[2020-05-18 08:32] LABS: CHOL/HDL RATIO 3.2 (4.2-7.3)
[2020-05-18] MEDS: ChlordiazePOXIDE HCL 25 MG CAPSULE PO SCH ×4 (09:34→21:05)
[2020-05-18] MEDS ORDERED: MIRTAZAPINE 15 MG TABLET PO SCH (21:00)
[2020-05-19 01:00] VITALS: BP 107/71
[2020-05-19 05:00] VITALS: BP 108/72
[2020-05-19 05:09] VITALS: BP 108/72
[2020-05-19] MEDS: ChlordiazePOXIDE HCL 25 MG CAPSULE PO SCH ×2 (09:44→13:13)
[2020-05-19 14:44] VITALS: BP 115/62
[2020-05-20] MEDS ORDERED: ChlordiazePOXIDE HCL 10 MG CAPSULE PO PRN (07:00)
[2020-05-20] MEDS ORDERED: ChlordiazePOXIDE HCL 10 MG CAPSULE PO SCH (09:00)
[2020-05-21] MEDS ORDERED: ChlordiazePOXIDE HCL 10 MG CAPSULE PO PRN (07:00)
== END 2020-05-19 14:30 | disposition home or self-care (01) | DRG 751 ==
LOC: EMS 16:51 → 3EI 19:53
PROVIDERS: ADMIT Psychiatry & Neurology Child & Adolescent Psychiatry; ATTEND Psychiatry & Neurology Child & Adolescent Psychiatry
DX: F33.2 Major depressive disorder, recurrent severe without psychotic features (principal); R45.851 Suicidal ideations; F41.9 Anxiety disorder, unspecified; F12.90 Cannabis use, unspecified, uncomplicated; F10.20 Alcohol dependence, uncomplicated; Y90.9 Presence of alcohol in blood, level not specified; Z20.828 Contact with and (suspected) exposure to other viral communicable diseases
CPT/HCPCS: 87081; 87426; G0480